=== PATIENT | female | born 1940 | race Two or more races ===

== ENCOUNTER 2021-05-12 09:16 | Emergency (ER) | payer OTHER, MEDICARE ==
[2021-05-12 09:21] VITALS: BP 116/74; PULSE 61; TEMP 98.6; BMI 30.9
[2021-05-12] MEDS ORDERED: ACETAMINOPHEN 1000 MG/100 ML VIAL (NON FORMULARY) IVPB ONE (10:37)
[2021-05-12] MEDS ORDERED: ACETAMINOPHEN 500 MG TABLET (FP) PO ONE (10:54)
[2021-05-12] MEDS ORDERED: ACETAMINOPHEN 500 MG TABLET (FP) ONE (10:55)
[2021-05-12] MEDS ORDERED: LIDOCAINE 5% TOPICAL PATCH TP ONE (13:13)
[2021-05-12] MEDS ORDERED: LIDOCAINE 5% TOPICAL PATCH ONE (14:13)
[2021-05-13] MEDS ORDERED: LIDOCAINE PATCH REMOVAL MC ONE (01:30)
== END 2021-05-12 14:50 | disposition home or self-care (01) ==
LOC: JER 09:16
PROC: 3E033NZ Introduction of Analgesics, Hypnotics, Sedatives into Peripheral Vein, Percutaneous Approach (ICD-10-PCS; principal; 2021-05-12)
DX: R07.81 Pleurodynia (principal); M25.562 Pain in left knee; W10.8XXA Fall (on) (from) other stairs and steps, initial encounter; Y92.9 Unspecified place or not applicable
CPT/HCPCS: 70450-TC; 71250-TC; 72125-TC; 72131-TC; 72192-TC; 73562-TC-LT-FY; 99285-25